=== PATIENT | female | born 1965 | race Caucasian/White ===

== ENCOUNTER → 2016-07-28 | Outpatient (CLI) | payer OTHER ==
--- NOTE | 2016-07-28 15:21 | REPMRS ---
Patient History The patient states she had a clinical breast exam in 2015. Patient had first child at age 33. No known family history of cancer. Digital Mammo Screening Bilat: July 28, 2016 - Exam #: [id number] Bilateral CC and MLO view(s) were taken. Technologist: Angeles Guthrie, Technologist Prior study comparison: March 07, 2014, bilateral digital mammo screening bilat performed at [facility]. FINDINGS: There are scattered fibroglandular densities. There has been no change in the appearance of the mammogram from the prior studies. There is a mild amount of residual fibroglandular tissue which is fairly symmetric. There is no interval development of dominant mass, architectural distortion, or clustered microcalcification suggestive of malignancy. There are scattered, small, benign calcifications of doubtful clinical significance. No significant changes when compared with prior studies. ASSESSMENT: BI-RADS/ACR category 2 mammogram. Benign finding(s). Recommendation Routine screening mammogram in 1 year (for women over age 40). This mammogram was interpreted with the aid of an FDA-approved computer-aided dectection system. A. Negative x-ray reports should not delay biopsy if a dominant or clinically suspicious mass is present. B. Four to eight percent of cancers are not identified by mammography. C. Adenosis and dense breast may obscure an underlying neoplasm. Electronically Signed By: Perry Laird MD 07/28/16 [id number]
== END ==
LOC: M RAD 13:22
PROVIDERS: ATTEND Physician Assistant Medical
DX: Z12.31 Encounter for screening mammogram for malignant neoplasm of breast (principal)

== ENCOUNTER 2022-12-04 15:46 | Emergency (ER) | payer OTHER ==
[~2022-12-04] VITALS: Ht 162.6 cm; Wt 90.8 kg
[2022-12-04 15:47] VITALS: TEMP 98.1; O2SAT 99
[2022-12-04] MEDS ORDERED: LISI20TA33 PO (15:58)
[2022-12-04] MEDS ORDERED: METF10004 PO (15:58)
[2022-12-04] MEDS ORDERED: BYDU2INJ7 SC (15:59)
[2022-12-04] MEDS ORDERED: ATOR40TA75 PO (15:59)
[2022-12-04] MEDS ORDERED: ACETAMINOPHEN 500 MG TAB PO ONE (17:35)
[2022-12-04] MEDS ORDERED: GABAPENTIN 300 MG CAP PO ONE (18:05)
[2022-12-04 18:13] VITALS: BP 191/91
[2022-12-04] MEDS ORDERED: NORCO, ANEXSIA 5/325MG TABLET (HYDROcodone/ACETAMINOPHEN) PO ONE (19:25)
[2022-12-04] MEDS ORDERED: HYDR-3713 PO (19:28)
[2022-12-04] MEDS ORDERED: NEUR300C PO (19:28)
[2022-12-04 19:35] VITALS: BP 185/91
== END 2022-12-04 19:44 | disposition home or self-care (01) ==
LOC: M ED 15:46
DX: B02.9 Zoster without complications (principal); E11.9 Type 2 diabetes mellitus without complications; I10 Essential (primary) hypertension; G43.909 Migraine, unspecified, not intractable, without status migrainosus; Z88.7 Allergy status to serum and vaccine; Z79.84 Long term (current) use of oral hypoglycemic drugs; Z79.899 Other long term (current) drug therapy

== ENCOUNTER 2022-12-06 14:56 | Emergency (ER) | payer OTHER ==
[~2022-12-06] VITALS: Ht 162.6 cm; Wt 90.5 kg
[~2022-12-06 14:56] MED LIST: ATOR40TA75 PO; BYDU2INJ7 SC; HYDR-3713 PO; LISI20TA33 PO; METF10004 PO; NEUR300C PO
[2022-12-06 15:44] LABS: BASO % 0.4 % (0.0-1.0); EOS % 0.3 % (0.0-3.0); HEMATOCRIT 41.2 % (36.0-47.0); HEMOGLOBIN 14.1 g/dl (12.0-15.5); LYMPH # 1.8 10^3/uL (1.5-5.0); MEAN CORPUSCULAR HEMOGLOBIN 30.7 pg (27.0-33.0); MEAN CORPUSCULAR HGB CONC 34.2 g/dl (32.0-36.5); MEAN CORPUSCULAR VOLUME 89.8 fl (80.0-96.0); MONO # 0.5 10^3/uL (0.0-0.8); MONO % 4.9 % (2.0-8.0); NEUTROPHILS # 8.1 10^3/uL (1.5-8.5); PLATELET COUNT, AUTOMATED 256 10^3/uL (150-450); RED BLOOD COUNT 4.59 10^6/uL (4.00-5.40); WHITE BLOOD COUNT 10.6 10^3/uL (4.0-10.0)
[2022-12-06 15:56] LABS: INR 0.86; PROTHROMBIN TIME 11.9 SECONDS (12.5-14.5)
[2022-12-06 15:57] LABS: PARTIAL THROMBOPLASTIN TIME 25.7 SECONDS (24.8-34.2)
[2022-12-06 16:09] LABS: BLOOD UREA NITROGEN 13 MG/DL (9-23); CALCIUM LEVEL 12.1 MG/DL (8.5-10.1); CARBON DIOXIDE LEVEL 34 MMOL/L (20-31); CHLORIDE LEVEL 95 MMOL/L (98-107); CK-MB VALUE MASS < 1.0 NG/ML (<3.6); CPK CREATINE PHOSPHOKINASE 74 U/L (34-145); CREATININE FOR GFR 0.63 MG/DL (0.55-1.30); GLOMERULAR FILTRATION RATE > 60.0 (>51); GLUCOSE, FASTING 164 MG/DL (60-100); MB/CK RELATIVE INDEX 1.35 (< OR =4); POTASSIUM SERUM 3.8 MMOL/L (3.5-5.1); SODIUM LEVEL 135 MMOL/L (136-145)
[2022-12-06 16:14] LABS: RSV AMPLIFICATION NEGATIVE (NEGATIVE)
[2022-12-06] MEDS ORDERED: PRED20TA PO ×2 (16:45→16:47)
[2022-12-06] MEDS ORDERED: VALA1TAB5 PO ×2 (16:45→16:47)
[2022-12-06] MEDS ORDERED: valACYclovir HCL 500 MG TAB PO ONE (16:45)
[2022-12-06] MEDS ORDERED: predniSONE 20 MG TAB PO ONE (16:45)
[2022-12-06 17:18] VITALS: BP 162/84; TEMP 98.2; O2SAT 99
== END 2022-12-06 17:34 | disposition home or self-care (01) ==
LOC: M ED 14:56
DX: G51.0 Bell's palsy (principal); I10 Essential (primary) hypertension; E11.9 Type 2 diabetes mellitus without complications; E78.5 Hyperlipidemia, unspecified; G43.909 Migraine, unspecified, not intractable, without status migrainosus; Z79.899 Other long term (current) drug therapy; Z79.84 Long term (current) use of oral hypoglycemic drugs
CPT/HCPCS: 36415; 70450; 70496; 70498; 71045; 80047; 80048; 82550; 82553; 84484; 85025; 85610; 85730; 87631; 93005; 93041; 94760; 99285; J7512

== ENCOUNTER 2022-12-09 13:42 | Emergency (ER) | payer OTHER ==
[~2022-12-09] VITALS: Ht 162.6 cm; Wt 89.3 kg
[~2022-12-09 13:42] MED LIST changes: +PRED20TA PO; +VALA1TAB5 PO
[2022-12-09] MEDS ORDERED: ONDANSETRON 4MG 2ML VIAL IV ONE (16:50)
[2022-12-09] MEDS ORDERED: LIDOCAINE 5% (LIDODERM) PATCH TD ONE (16:50)
[2022-12-09] MEDS ORDERED: MORPHINE 4 MG/ML 1ML VIAL IV ONE ×3 (16:50→21:35)
[2022-12-09] MEDS ORDERED: GABAPENTIN 300 MG CAP PO ONE (16:50)
[2022-12-09 17:14] LABS: BASO % 0.1 % (0.0-1.0); EOS % 0.1 % (0.0-3.0); HEMATOCRIT 39.2 % (36.0-47.0); HEMOGLOBIN 13.2 g/dl (12.0-15.5); LYMPH # 3.4 10^3/uL (1.5-5.0); LYMPH % 23.6 % (24.0-44.0); MEAN CORPUSCULAR HEMOGLOBIN 30.3 pg (27.0-33.0); MEAN CORPUSCULAR HGB CONC 33.7 g/dl (32.0-36.5); MEAN CORPUSCULAR VOLUME 89.9 fl (80.0-96.0); MONO % 6.7 % (2.0-8.0); NEUTROPHILS # 9.8 10^3/uL (1.5-8.5); PLATELET COUNT, AUTOMATED 289 10^3/uL (150-450); RED BLOOD COUNT 4.36 10^6/uL (4.00-5.40); WHITE BLOOD COUNT 14.3 10^3/uL (4.0-10.0)
[2022-12-09 17:41] LABS: C REACTIVE PROTEIN QUANTITATIV < 0.40 MG/DL (<1.0)
[2022-12-09 17:43] LABS: ALBUMIN 4.1 G/DL (3.2-5.2); ALKALINE PHOSPHATASE 131 U/L (46-116); ALT/SGPT 28 U/L (7.0-40); AST/SGOT 9 U/L (<34); BILIRUBIN,TOTAL 0.6 MG/DL (0.3-1.2); BLOOD UREA NITROGEN 25 MG/DL (9-23); CALCIUM LEVEL 11.8 MG/DL (8.5-10.1); CARBON DIOXIDE LEVEL 28 MMOL/L (20-31); CHLORIDE LEVEL 101 MMOL/L (98-107); CREATININE FOR GFR 0.61 MG/DL (0.55-1.30); GLOMERULAR FILTRATION RATE > 60.0 (>51); GLUCOSE, FASTING 192 MG/DL (60-100); SODIUM LEVEL 137 MMOL/L (136-145); TOTAL PROTEIN 7.4 G/DL (5.7-8.2)
[2022-12-09] MEDS ORDERED: ISOVUE-370 76% 100ML VIAL As Ordered ONE (17:59)
[2022-12-09 18:04] LABS: ERYTHROCYTE SEDIMENTATION RATE 12 mm/hr (0-30)
[2022-12-09] MEDS ORDERED: diazePAM 10MG/2ML SYRINGE IV ONE (18:45)
[2022-12-09 20:29] VITALS: BP 188/86
[2022-12-09 22:23] LABS: CK-MB VALUE MASS < 1.0 NG/ML (<3.6)
[2022-12-09 22:24] LABS: CPK CREATINE PHOSPHOKINASE 52 U/L (34-145); MB/CK RELATIVE INDEX 1.92 (< OR =4)
[2022-12-09] MEDS ORDERED: PERC5TAB12 PO (22:55)
[2022-12-09 23:11] VITALS: BP 148/79; TEMP 98; O2SAT 100
== END 2022-12-09 23:16 | disposition home or self-care (01) ==
LOC: M ED 13:42
DX: M54.6 Pain in thoracic spine (principal); R10.32 Left lower quadrant pain; I10 Essential (primary) hypertension; E11.9 Type 2 diabetes mellitus without complications; Z79.899 Other long term (current) drug therapy; Z79.84 Long term (current) use of oral hypoglycemic drugs
CPT/HCPCS: 71275; 74177; 80053; 82550; 82553; 84484; 85025; 85652; 86140; 93005; 96374; 96375; 96376; 99285; J2405; J3360; Q9967

== ENCOUNTER → 2022-12-10 | Outpatient (REF) | payer OTHER ==
[~2022-12-10] MED LIST changes: +PERC5TAB12 PO
[2022-12-10 12:09] LABS: APPEARANCE, URINE CLEAR (CLEAR); BACTERIA, URINE AUTO NEGATIVE (NEGATIVE); BILIRUBIN, URINE AUTO NEGATIVE (NEGATIVE); BLOOD, URINE BLOOD NEGATIVE (NEGATIVE); COLOR, URINE YELLOW (YELLOW); GLUCOSE, URINE (UA) AUTO 1+ mg/dL (NEGATIVE); KETONE, URINE AUTO NEGATIVE (NEGATIVE); LEUKOCYTE ESTERASE, URINE AUTO NEGATIVE (NEGATIVE); MUCUS, URINE SMALL (NEGATIVE); NITRITE, URINE AUTO NEGATIVE (NEGATIVE); PROTEIN, URINE AUTO NEGATIVE (NEGATIVE); RBC, URINE AUTO 0 /HPF (0-3); SQUAMOUS EPITHELIAL CELL UR AU 1 /HPF (0-6); UROBILINOGEN, URINE AUTO 0.2 mg/dL (0.0-2.0); WBC, URINE AUTO 2 /HPF (0-3)
== END ==
LOC: M LAB REF 11:07
PROVIDERS: ATTEND Physician Assistant
DX: N39.0 Urinary tract infection, site not specified (principal)

== ENCOUNTER 2022-12-14 12:11 | Emergency (ER) | payer OTHER ==
[~2022-12-14] VITALS: Ht 162.6 cm; Wt 90.9 kg
[2022-12-14 12:59] LABS: HEMOGLOBIN 13.9 g/dl (12.0-15.5); MEAN CORPUSCULAR HEMOGLOBIN 30.8 pg (27.0-33.0); MEAN CORPUSCULAR HGB CONC 33.9 g/dl (32.0-36.5); MEAN CORPUSCULAR VOLUME 90.9 fl (80.0-96.0); PLATELET COUNT, AUTOMATED 322 10^3/uL (150-450); RED BLOOD COUNT 4.51 10^6/uL (4.00-5.40); WHITE BLOOD COUNT 14.9 10^3/uL (4.0-10.0)
[2022-12-14 13:32] LABS: BLOOD UREA NITROGEN 15 MG/DL (9-23); CALCIUM LEVEL 12.3 MG/DL (8.5-10.1); CARBON DIOXIDE LEVEL 29 MMOL/L (20-31); CHLORIDE LEVEL 98 MMOL/L (98-107); CREATININE FOR GFR 0.67 MG/DL (0.55-1.30); GLOMERULAR FILTRATION RATE > 60.0 (>51); GLUCOSE, FASTING 194 MG/DL (60-100); POTASSIUM SERUM 5.2 MMOL/L (3.5-5.1); SODIUM LEVEL 134 MMOL/L (136-145)
[2022-12-14 16:46] LABS: ALKALINE PHOSPHATASE 120 U/L (46-116); ALT/SGPT 41 U/L (7.0-40); AST/SGOT 18 U/L (<34); BILIRUBIN,DIRECT 0.3 MG/DL (<0.4); BILIRUBIN,TOTAL 0.9 MG/DL (0.3-1.2); MAGNESIUM LEVEL 1.9 MG/DL (1.8-2.4); PTH INTACT 93.9 PG/ML (18.5-88.0); TOTAL PROTEIN 7.1 G/DL (5.7-8.2)
[2022-12-14 16:48] LABS: FREE THYROXINE INDEX 2.7 % (1.3-4.8); T UPTAKE 38.3 % (22.5-37.0); THYROID STIMULATING HORMONE 3.785 uIU/ML (0.55-4.78); TOTAL 25(OH) VITAMIN D 35.8 NG/ML (20.0-100.0)
[2022-12-14 18:58] VITALS: BP 133/78; TEMP 98.4; O2SAT 100
== END 2022-12-14 19:13 | disposition home or self-care (01) ==
LOC: M ED 12:11
DX: E21.3 Hyperparathyroidism, unspecified (principal); E83.52 Hypercalcemia; E11.9 Type 2 diabetes mellitus without complications; I10 Essential (primary) hypertension; E78.5 Hyperlipidemia, unspecified; G51.0 Bell's palsy; Z79.899 Other long term (current) drug therapy; Z79.84 Long term (current) use of oral hypoglycemic drugs; Z79.52 Long term (current) use of systemic steroids

== ENCOUNTER → 2023-05-30 | Outpatient (CLI) | payer OTHER | LOC: M RAD 07:20 | PROVIDERS: ATTEND Nurse Practitioner Family | DX: E83.52 Hypercalcemia (principal); Z53.9 Procedure and treatment not carried out, unspecified reason ==

== ENCOUNTER → 2025-01-14 | Outpatient (CLI) | payer OTHER ==
[~2025-01-14] MED LIST changes: -BYDU2INJ7 SC; +EXEN2AUT SC
== END ==
LOC: M CARPUL 12:13
PROVIDERS: ATTEND Internal Medicine
DX: R01.1 Cardiac murmur, unspecified (principal)